=== PATIENT | male | born 1995 | race Caucasian/White ===

== ENCOUNTER 2023-07-03 16:43 | Emergency (ER) | payer OTHER, SELFPAY ==
[2023-07-03 16:54] VITALS: BP 136/90; PULSE 99; RESP 16; TEMP 37.5; O2SAT 99
[2023-07-03 16:56] VITALS: BP 136/90; PULSE 99; RESP 16; TEMP 37.5; O2SAT 99
--- NOTE | 2023-07-03 17:00 | ED.SKABFB ---
HPI - Skin/Abscess/Foreign Bdy General Chief complaint: Skin/Abscess/Foreign Body Stated complaint: Rash Time Seen by Provider: 07/03/23 17:00 Source: patient Mode of arrival: ambulatory Limitations: no limitations History of Present Illness HPI narrative: 27-year-old male presented for complaint of red itchy rash spreading over both forearms and right forehead over the last week. Pt taking Xyzal and using calamine lotion for symptoms. Denies lip, tongue, or throat swelling, shortness of breath or wheezing. Denies changes to soap, detergent, lotion, or any other exposures. No one else in the house or any contacts with similar symptoms. Related Data Allergies Allergy/AdvReac Type Severity Reaction Status Date / Time No Known Allergies Allergy Verified 07/03/23 16:55 Review of Systems Review of Systems: CONSTITUTIONAL: Denies body aches, fever, chills, or sweats. EYES: Denies visual changes, redness, or discharge. ENT: Denies rhinorrhea, congestion CARDIOVASCULAR: Denies chest pain, palpitations, or edema. RESPIRATORY: Denies cough or dyspnea. GASTROINTESTINAL: Denies abdominal pain, nausea, vomiting, or diarrhea. SKIN: per HPI MUSCULOSKELETAL: Denies back pain, joint pain, or myalgia. NEUROLOGIC: Denies headache, numbness, tingling, or weakness. [facility] Past Medical History Medical History (Updated 07/03/23 @ 17:11 by Sosa Burks, BACTERIOLOGIST DAIRY) No pertinent past medical history Comments At time of signature, I have reviewed and agree with nursing past medical, surgical, social and family history unless otherwise noted. Please see nursing chart for further information. There is no relevant family history pertinent to the presenting complaint Exam Narrative: GENERAL: Well-appearing HEAD: Normocephalic, atraumatic. EYES: conjunctivae clear, and EOMI. ENT: Mucous membranes moist. Oropharynx without edema, erythema or lesions. NECK: Supple. No lymphadenopathy CHEST: Clear to auscultation. HEART: Regular rate and rhythm. SKIN: Warm, dry. Scattered vesicles on erythematous base to bilateral forearms and right forehead consistent with contact dermatitis. No tenderness fluctuance, induration, or drainage. NEURO: Alert and oriented x3. Course Course Emergency Course: Patient is aware of diagnosis, understands and agrees to treatment plan. Anticipatory guidance given. Patient agrees to follow-up as directed and is aware of reasons to seek care at the emergency department. Portions of this record may have been created with voice recognition software Level of Care: Express Care Visit Vital Signs Vital signs: Vital Signs Temperature 99.5 F 07/03/23 16:54 Pulse Rate 99 07/03/23 16:54 Respiratory Rate 16 07/03/23 16:54 Blood Pressure 136/90 07/03/23 16:54 Pulse Oximetry 99 07/03/23 16:54 Oxygen Delivery Room Air 07/03/23 16:54 Temperature 99.5 F 07/03/23 16:56 Pulse Rate 99 07/03/23 16:56 Respiratory Rate 16 07/03/23 16:56 Blood Pressure 136/90 07/03/23 16:56 Pulse Oximetry 99 07/03/23 16:56 Oxygen Delivery Room Air 07/03/23 16:56 Reviewed MDM - Skin/Abscess/Foreign Bdy MDM Narrative Medical decision making narrative: Instructed patient to go to nearest ER immediately for any worsening symptoms including but not limited to: fever, spreading rash, pain, sore throat, headache, dizziness, chest pain, trouble breathing, or any symptoms concerning to the patient. Differential Diagnosis Differential diagnosis: Likely abscess of skin or subcutaneous tissue, urticaria, herpes zoster, cellulitis and contact dermatitis Discharge Plan Discharge Clinical Impression: Contact dermatitis Patient Disposition: Home, Self-Care Condition: Stable Instructions: Antibiotic Form, Poison Tala (ED) Additional Instructions: Take steroids and Pepcid as directed. Benadryl every 8 hours as needed Cool compresses to the sites of itching, avoid hot water. Avoid sc
== END 2023-07-03 17:10 | disposition home or self-care (01) ==
PROVIDERS: Emergency Provider Nurse Practitioner Family
DX: L25.9 Unspecified contact dermatitis, unspecified cause (principal)
CPT/HCPCS: 99213; G0463

== ENCOUNTER 2023-07-14 11:03 | Emergency (ER) | payer OTHER, SELFPAY ==
[2023-07-14 11:08] VITALS: BP 126/86; PULSE 105; RESP 20; TEMP 36.9; O2SAT 100
--- NOTE | 2023-07-14 11:26 | PC.NURSE ---
documentation completed per munir omalley rn and reviewed.
--- NOTE | 2023-07-14 11:26 | ED.SKABFB ---
HPI - Skin/Abscess/Foreign Bdy General Chief complaint: Skin/Abscess/Foreign Body Stated complaint: Rash Time Seen by Provider: 07/14/23 11:10 Source: patient Mode of arrival: ambulatory Limitations: no limitations History of Present Illness HPI narrative: Ivy is a 27-year-old male patient presenting to the clinic today with complaints having poison approximately 10-14 days ago. He was seen in the clinic and got a prescription for prednisone and Pepcid. States he has finished the prednisone however and the rash is not completely gone on his legs. Related Data Allergies Allergy/AdvReac Type Severity Reaction Status Date / Time No Known Allergies Allergy Verified 07/03/23 16:55 Review of Systems Review of Systems: Pertinent positives per HPI. Patient denies any fever, chills, headache, visual changes, dizziness, cough, runny nose, sore throat, shortness of breath, chest pain, palpitations, nausea, vomiting, diarrhea, constipation, abdominal pain, or any urinary issues. PMFSH Past Medical History Medical History No pertinent past medical history Comments At the time of my signature, I reviewed and agree with the nursing past medical, surgical, social, and family history. There is no relevant family history pertinent to the patient complaint. Exam Narrative: General: Well-developed, well nourished, in no apparent distress Head: Normocephalic, atraumatic. Cardio: Regular rate and rhythm, s1 and s2 normal, no murmur appreciated. Resp: Clear to auscultation bilaterally, no rhonchi, rales, wheezing or rubs. Integumentary: [place], warm, and dry, intact without lesion, red raised blister like rash to the right and left lower left extremities Course Course Emergency Course: Portions of this record may have been created with voice recognition software. Level of Care: Express Care Visit Vital Signs Vital signs: Vital Signs Temperature 36.9 C 07/14/23 11:08 Pulse Rate 105 H 07/14/23 11:08 Respiratory Rate 20 07/14/23 11:08 Blood Pressure 126/86 07/14/23 11:08 Pulse Oximetry 100 07/14/23 11:08 Oxygen Delivery Room Air 07/14/23 11:08 Temperature 36.9 C 07/14/23 11:08 Pulse Rate 105 H 07/14/23 11:08 Respiratory Rate 20 07/14/23 11:08 Blood Pressure 126/86 07/14/23 11:08 Pulse Oximetry 100 07/14/23 11:08 Oxygen Delivery Room Air 07/14/23 11:08 Vital signs reviewed MDM - Skin/Abscess/Foreign Bdy MDM Narrative Medical decision making narrative: At the time of visit patient is resting on the exam table. I suspect the patient has residual poison tala dermatitis. Will send in prescription for taper dose of some steroid and triamcinolone cream. Supportive measures were discussed with the patient he voiced understanding discharge instructions agrees to treatment plan. Differential Diagnosis Differential diagnosis: Likely abscess of skin or subcutaneous tissue, viral exanthem, dermatophytosis, urticaria, allergic reaction to drug, cellulitis, insect bites, impetigo and contact dermatitis Discharge Plan Discharge Clinical Impression: Allergic contact dermatitis due to plant Patient Disposition: Home, Self-Care Condition: Stable Instructions: Antibiotic Form, Poison Tala (ED) Additional Instructions: Apply triamcinolone cream as directed Take prednisone as directed Avoid hot showers May apply calamine lotion to rash Avoid scratching and this causes rash to spread May take benadryl 25-50mg every 6 hours as needed for itching. Follow up with your PCP in 3-5 days if symptoms persist or sooner if they worsen Go to the Emergency Room if symptoms worsen- fever, rash spreading with treatment, shortness of breath, tongue swelling, drooling, or chest pain Prescriptions: New prednisone 10 mg tablet 10 mg PO DAILY Qty: 30 0RF Rx Instructions: 60mg po daily on day 1, 40mg po daily on
--- NOTE | 2023-07-14 11:27 | PC.NURSE ---
[id number] provider, matilda in room with pt
== END 2023-07-14 11:34 | disposition home or self-care (01) ==
PROVIDERS: Emergency Provider Nurse Practitioner Family
DX: L23.7 Allergic contact dermatitis due to plants, except food (principal)
CPT/HCPCS: 99213; G0463